=== PATIENT | female | born 1935 ===

== ENCOUNTER 2019-11-08 08:15 | Inpatient (IN) | payer OTHER ==
[~2019-11-08] VITALS: Ht 162.6 cm; Wt 74.8 kg
[2019-11-08] MEDS ORDERED: ZESTRIL10 M1 PO (10:33)
[2019-11-08] MEDS ORDERED: OXYB PO (10:34)
[2019-11-08] MEDS ORDERED: DIVALPROEX SOD500 M1 PO (10:34)
[2019-11-08] MEDS ORDERED: QUETIAPINE FUM400 M1 PO (10:35)
[2019-11-08] MEDS ORDERED: TIROSINT112 MCG PO (10:36)
[2019-11-08] MEDS ORDERED: SIMVASTA PO (10:36)
[2019-11-08] MEDS ORDERED: DITROPAN XL10 MG PO (13:29)
[2019-11-08] MEDS ORDERED: HUMALOG100 UNIT/1 SUBCUTANEO (13:30)
[2019-11-12] MEDS ORDERED: ZOCOR20 MG PO (08:29)
[2019-11-14] MEDS ORDERED: PERCOCET 5-3251 EACH PO (16:44)
[2019-11-14] MEDS ORDERED: ELIQUIS2.5 MG PO (16:44)
== END 2019-11-14 19:41 | DRG 470 ==
LOC: O/R 11-12 05:30 → SURG 11-12 05:30 → O/R 11-12 08:15 → SURG 11-12 11:36 → O/R 11-12 15:15 → SURG 11-13 18:59
PROVIDERS: ADMIT Orthopaedic Surgery; ATTEND Orthopaedic Surgery
PROC: 0MNN0ZZ Release Right Knee Bursa and Ligament, Open Approach (ICD-10-PCS; 2019-11-12)
PROC: 0SRC0J9 Replacement of Right Knee Joint with Synthetic Substitute, Cemented, Open Approach (ICD-10-PCS; principal; 2019-11-12 15:15)
DX: M17.11 Unilateral primary osteoarthritis, right knee (principal); M22.11 Recurrent subluxation of patella, right knee; I10 Essential (primary) hypertension; D64.9 Anemia, unspecified; E03.8 Other specified hypothyroidism; E11.9 Type 2 diabetes mellitus without complications; Z79.4 Long term (current) use of insulin

== ENCOUNTER 2023-11-06 11:54 | Inpatient (IN) | payer OTHER ==
[~2023-11-06] VITALS: Ht 165.1 cm; Wt 72.6 kg
[~2023-11-06 11:54] MED LIST: DITROPAN XL10 MG PO; DIVALPROEX SOD500 M1 PO; ELIQUIS2.5 MG PO; HUMALOG100 UNIT/1 SUBCUTANEO; OXYB PO; PERCOCET 5-3251 EACH PO; QUETIAPINE FUM400 M1 PO; SIMVASTA PO; TIROSINT112 MCG PO; ZESTRIL10 M1 PO; ZOCOR20 MG PO
--- NOTE | 2023-11-06 12:35 | NUR ---
PTE ALERTA Y ORIENTADA X3 EN COMPANIA DE FAMILIAR VIENE EN AMBULANCIA TRANSFERIDA DE CENTRO MEDICO. PTE SUFRIO CAIDA LA NOCHE DE JUANITA Y SE LASTIMO PIERNA DERECHA LA CUAL PROYECTA DOLOR AL EJERCER PRECION Y AL MOVIMIENTO. FAMILIAR REFIERE QUE HAY POSIBLE FRACTURA. SE COLOCA A PTE EN JEFFREY EN SECCION K Y SE RODERICK S/V.
[2023-11-06] MEDS ORDERED: ZESTRIL2.5 MG (12:38)
[2023-11-06] MEDS ORDERED: LEVOTHYROXINE13 MCG PO (12:39)
[2023-11-06] MEDS ORDERED: SEROQUEL25 MG (12:39)
[2023-11-06] MEDS ORDERED: ATORVASTATIN CA10 MG (12:39)
[2023-11-06] MEDS ORDERED: LEVOTHYROXINE25 MCG (12:39)
[2023-11-06] MEDS ORDERED: HUMULIN N100 UNIT/2 (12:39)
[2023-11-06] MEDS ORDERED: MORPHINE SULFATE 4 MG/ML VIAL IV PRN (12:45)
[2023-11-06] MEDS ORDERED: 0.9 % SODIUM CHLORIDE 1,000 ML IV SCH ×2 (12:45→18:30)
[2023-11-06 13:07] LABS: HEMATOCRIT 36.2 % (36.0-45.00); HEMOGLOBIN 12.4 g/dL (12.0-15.00); MEAN CELL VOLUME 85.9 fL (80.00-100.00); MEAN CORPUSCULAR HEMOGLOBIN 29.4 pg (27.00-32.0); MEAN CORPUSCULAR HGB CONC 34.2 g/dl (32.0-36.0); PLATELET COUNT 177 K/uL (150-450); RED BLOOD COUNT 4.22 M/uL (4.00-6.00); RED CELL DISTRIBUTION WIDTH 14.3 % (11.5-14.5)
--- NOTE | 2023-11-06 13:32 | NUR ---
KAELA HUGHES ORIENTE A PACIENET Y FAMILIAR SOBRE ORDENES MEDICAS. KAELA HUGHES REALIZA VENOPUNCION PARA COLECTAR MUESTRAS DE HUMA Y ADMINISTRAR MEDS VIA PERIFERICA. SE NOTIFICA PLACA. CON USO DE MEDIDAS ASEPTICAS Y ESTERILES SE COLOCA EARL
[2023-11-06 13:41] LABS: INR 1.04; PARTIAL THROMBOPLASTIN TIME 27.8 SECONDS (22.0-34.0); PROTHROMBIN TIME 10.9 SECONDS (9.0-11.5)
[2023-11-06 13:49] LABS: ALBUMIN 2.9 gm/dL (3.4-5.0); BILIRUBIN TOTAL 0.74 mg/dL (0.3-1.2); CALCIUM 8.3 mg/dL (8.5-10.1); CREATININE SERUM 0.54 mg/dL (0.55-1.02); GFR 106.79; GLOBULINA 3.6 G/DL (2.4-3.5); POTASSIUM 3.87 mEq/L (3.5-5.1); TOTAL PROTEIN 6.5 gm/dL (6.4-8.2)
[2023-11-06 15:28] LABS: PH,URINE 6.5 (5.0-8.0); URINE APPEARANCE Clear; URINE BILIRRUBIN Negative (NEGATIVE); URINE BLOOD Negative; URINE COLOR Yellow; URINE GLUCOSE Negative (NEGATIVE); URINE LEUKOCYTE Trace; URINE NITRATE Negative; URINE PROTEIN Negative (NEGATIVE); URINE UROBILINOGEN 0.2 E.U./dl
[2023-11-06 15:31] LABS: URINE BACTERIA 49.1 uL (0.0-1933); URINE EPITHELIAL CELLS 6.6 uL (0.0-38.8); URINE RBC 3.9 uL (0.0-20.8)
[2023-11-06] MEDS ORDERED: CEFAZOLIN SODIUM 1,000 MG VIAL IV ONE (18:30)
[2023-11-06] MEDS ORDERED: MEPERIDINE HCL/PF 50 MG/ML VIAL IM PRN (18:30)
[2023-11-06] MEDS ORDERED: OxyCODONE HCL/APAP UD (PERCOCET) PO PRN (18:30)
[2023-11-06] MEDS ORDERED: PROMETHAZINE HCL 50 MG/ML AMPUL IM PRN (18:30)
[2023-11-06 19:20] LABS: INR 1.05; PARTIAL THROMBOPLASTIN TIME 29.3 SECONDS (22.0-34.0)
[2023-11-06 19:21] LABS: CALCIUM 8.5 mg/dL (8.5-10.1); MAGNESIUM 1.7 mg/dL (1.8-2.4); PHOSPHOROUS 3.4 mg/dL (2.5-4.9)
[2023-11-07] MEDS ORDERED: CEFAZOLIN SODIUM 1,000 MG VIAL IV ONE (15:45)
[2023-11-07] MEDS ORDERED: VANCOMYCIN HCL 1,000 MG VIAL IR ONE (15:45)
[2023-11-07] MEDS ORDERED: APIXABAN 2.5 MG TABLET PO SCH (18:37)
[2023-11-08] MEDS ORDERED: ELIQUIS2.5 MG PO (08:24)
[2023-11-08] MEDS ORDERED: CEFADROXIL500 MG PO (08:24)
[2023-11-08] MEDS ORDERED: PERCOCET 5-3251 EACH PO (08:24)
[2023-11-08] MEDS ORDERED: MORPHINE SULFATE 4 MG/ML CARTRIDGE IV PRN (08:45)
[2023-11-08] MEDS ORDERED: ONDANSETRON HCL 2 MG/ML VIAL IV PRN (08:45)
[2023-11-08] MEDS ORDERED: OxyCODONE HCL 5 MG TABLET (ROXICODONE) PO PRN (08:45)
[2023-11-08] MEDS ORDERED: SODIUM CHLORIDE 0.45 % 1,000 ML IV SCH (08:45)
[2023-11-08] MEDS ORDERED: GABAPENTIN 300 MG CAPSULE PO SCH (09:00)
[2023-11-08] MEDS ORDERED: CEFAZOLIN SODIUM 1,000 MG VIAL IV SCH (09:00)
[2023-11-08] MEDS ORDERED: ACETAMINOPHEN 500 MG GEL..CAP PO SCH (12:00)
[2023-11-08] MEDS ORDERED: APIXABAN 2.5 MG TABLET PO SCH (17:00)
[2023-11-08] MEDS ORDERED: SOD FERRIC GLUC COMPLX/SUCROSE 62.5 MG/5 ML AMPUL IV SCH (17:00)
[2023-11-08] MEDS ORDERED: VITAMIN B COMPLEX 1 EACH PO SCH (17:00)
[2023-11-08] MEDS ORDERED: Cyanocobalamin/Mecobalamin 1 TAB.SL SL SCH (17:00)
[2023-11-08] MEDS ORDERED: DEXTROSE 50 % IN WATER 0.5 G/ML DISP.SYRIN IV PRN (18:00)
[2023-11-08] MEDS ORDERED: INSULIN LISPRO 1,000 UNIT/10 ML UNITS SUBCUTANEO PRN (18:00)
[2023-11-09 08:03] LABS: MEAN CELL VOLUME 87.7 fL (80.00-100.00); PLATELET COUNT 179 K/uL (150-450); RED BLOOD COUNT 2.32 M/uL (4.00-6.00); RED CELL DISTRIBUTION WIDTH 14.5 % (11.5-14.5)
[2023-11-09] MEDS ORDERED: IRON FUM,PS/FOLIC ACID/VITC/B3 1 CAP CAPSULE PO SCH (09:00)
[2023-11-09] MEDS ORDERED: SENNOSIDES 1 TAB TABLET PO SCH (09:00)
[2023-11-09 09:01] LABS: HEMATOCRIT 20.4 % (36.0-45.00); MEAN CORPUSCULAR HEMOGLOBIN 30.6 pg (27.00-32.0)
[2023-11-09 09:02] LABS: HEMOGLOBIN 7.1 g/dL (12.0-15.00)
[2023-11-09] MEDS ORDERED: ENALAPRILAT DIHYDRATE 2.5 MG/2 ML VIAL IV PRN (19:15)
[2023-11-09] MEDS ORDERED: METOPROLOL SUCCINATE 25 MG TAB.SR.24H PO SCH (21:28)
[2023-11-10] MEDS ORDERED: FUROsemide 20 MG/2 ML VIAL IV STA (08:56)
[2023-11-10 09:53] LABS: HEMATOCRIT 25.5 % (36.0-45.00); MEAN CELL VOLUME 86.3 fL (80.00-100.00); PLATELET COUNT 228 K/uL (150-450); RED BLOOD COUNT 2.95 M/uL (4.00-6.00); RED CELL DISTRIBUTION WIDTH 14.6 % (11.5-14.5)
[2023-11-10 09:56] LABS: HEMOGLOBIN 8.9 g/dL (12.0-15.00); MEAN CORPUSCULAR HEMOGLOBIN 30.1 pg (27.00-32.0)
[2023-11-10 10:37] LABS: ABG PH 7.492 (7.35-7.45); ABG PO2 72.7 mmHg (80-100); ABG pCO2 37.2 mmHg (35-45); BASE EXCESS 4.5 mmol/l; BICARBONATE 27.8 mmol/l (23-25); SaO2 95.9 %
[2023-11-10 10:38] LABS: allen test SATISFACTORY; o2 21 %; puncture site RADIAL LEFT
[2023-11-10] MEDS ORDERED: DIPHENHYDRAMINE HCL 50 MG/ML VIAL 1ML IV NR (13:30)
[2023-11-10] MEDS ORDERED: FUROsemide 20 MG/2 ML VIAL IV SCH ×2 (13:45→20:30)
[2023-11-10] MEDS ORDERED: QUETIAPINE FUMARATE 100 MG TABLET PO SCH (21:00)
[2023-11-10] MEDS ORDERED: DIVALPROEX SODIUM 500 MG TAB.ER.24H PO SCH (21:00)
[2023-11-11] MEDS ORDERED: LEVOTHYROXINE SODIUM 137 MCG TABLET PO SCH (06:00)
[2023-11-11] MEDS ORDERED: INSULIN NPH HUMAN ISOPHANE 1,000 UNITS/10 ML UNITS SUBCUTANEO SCH (19:23)
[2023-11-11 21:27] LABS: HEMATOCRIT 31.2 % (36.0-45.00); HEMOGLOBIN 10.8 g/dL (12.0-15.00); MEAN CELL VOLUME 85.5 fL (80.00-100.00); MEAN CORPUSCULAR HEMOGLOBIN 29.5 pg (27.00-32.0); MEAN CORPUSCULAR HGB CONC 34.5 g/dl (32.0-36.0); PLATELET COUNT 289 K/uL (150-450); RED BLOOD COUNT 3.64 M/uL (4.00-6.00); RED CELL DISTRIBUTION WIDTH 14.7 % (11.5-14.5)
[2023-11-12] MEDS ORDERED: MEPERIDINE HCL 25 MG/ML AMPUL IV PRN (08:15)
[2023-11-12] MEDS ORDERED: FUROsemide 20 MG/2 ML VIAL IV SCH (09:00)
[2023-11-12 18:20] LABS: HEMATOCRIT 30.9 % (36.0-45.00); HEMOGLOBIN 10.8 g/dL (12.0-15.00); MEAN CELL VOLUME 84.5 fL (80.00-100.00); MEAN CORPUSCULAR HEMOGLOBIN 29.4 pg (27.00-32.0); MEAN CORPUSCULAR HGB CONC 34.8 g/dl (32.0-36.0); PLATELET COUNT 319 K/uL (150-450); RED BLOOD COUNT 3.66 M/uL (4.00-6.00); RED CELL DISTRIBUTION WIDTH 15.3 % (11.5-14.5)
== END 2023-11-13 19:46 | DRG 481 ==
LOC: ER 11:54 → SEC-K 19:07 → SURH 19:07
PROVIDERS: General Practice; Internal Medicine; ADMIT Orthopaedic Surgery; ATTEND Orthopaedic Surgery
PROC: 0QU80KZ Supplement Right Femoral Shaft with Nonautologous Tissue Substitute, Open Approach (ICD-10-PCS; 2023-11-07)
PROC: 0QS806Z Reposition Right Femoral Shaft with Intramedullary Internal Fixation Device, Open Approach (ICD-10-PCS; principal; 2023-11-07 23:00)
PROC: 30233N1 Transfusion of Nonautologous Red Blood Cells into Peripheral Vein, Percutaneous Approach (ICD-10-PCS; 2023-11-10)
DX: S72.141A Displaced intertrochanteric fracture of right femur, initial encounter for closed fracture (principal); M97.11XA Periprosthetic fracture around internal prosthetic right knee joint, initial encounter; M81.0 Age-related osteoporosis without current pathological fracture; D64.9 Anemia, unspecified; E11.9 Type 2 diabetes mellitus without complications; Z79.4 Long term (current) use of insulin; I10 Essential (primary) hypertension